=== PATIENT | male | born 1955 | race Caucasian/White ===

== ENCOUNTER → 2020-11-30 | Outpatient (CLI) | payer MEDICARE ==
[2020-11-30 15:21] LABS: HCT 44.9 % (39.0-53.0); MCH 29.8 pg (25.0-35.0); MCHC 33.4 g/dL (31.0-37.0); MCV 89.1 fL (80.0-100.0); Platelet Count 203 k/uL (150-450); RBC 5.04 m/uL (4.30-5.90); RDW 12.5 % (11.5-15.5); WBC 10.1 k/uL (3.8-10.6)
[2020-11-30 15:24] LABS: Appearance,Urine Clear (Clear); Bilirubin,Urine Negative (Negative); Blood,Urine Negative (Negative); Color,Urine Yellow; Glucose,Urine (UA) Negative (Negative); Ketones,Urine Negative (Negative); Leukocyte Esterase,Urine Negative (Negative); Nitrite,Urine Negative (Negative); Protein,Urine Trace (Negative); Specific Gravity,Urine 1.027 (1.001-1.035); Urobilinogen,Urine <2.0 mg/dL (<2.0)
[2020-11-30 15:31] LABS: Partial Thromboplastin Time 23.7 sec (22.0-30.0); Prothrombin Time 10.6 sec (9.0-12.0)
[2020-11-30 15:35] LABS: ALT 17 U/L (4-49); AST 28 U/L (17-59); African American GFR (CKD) >90 (>60 ml/min/1.73 sqM); Albumin 4.9 g/dL (3.5-5.0); Alkaline Phosphatase 65 U/L (38-126); Anion Gap 9 mmol/L; Blood Urea Nitrogen 18 mg/dL (9-20); Calcium 9.8 mg/dL (8.4-10.2); Carbon Dioxide 25 mmol/L (22-30); Chloride 106 mmol/L (98-107); Glucose 141 mg/dL (74-99); Non-African American GFR(CKD) 89 (>60 ml/min/1.73 sqM); Potassium 5.1 mmol/L (3.5-5.1); Sodium 140 mmol/L (137-145); Total Bilirubin 0.8 mg/dL (0.2-1.3); Total Protein 8.3 g/dL (6.3-8.2)
== END | disposition home or self-care (01) ==
LOC: LABPAT 14:34
PROVIDERS: ATTEND Orthopaedic Surgery
DX: Z01.818 Encounter for other preprocedural examination (principal)
CPT/HCPCS: 80053; 81003; 85027; 85610; 85730; 93005

== ENCOUNTER 2020-12-08 11:46 | Day surgery (SDC) | payer MEDICARE ==
[2020-12-06 10:02] VITALS: BMI 34.7
[~2020-12-08 11:46] MED LIST: ACETAMINOPHEN TAB 500 MG TAB PO PRN; DOCUSATE 100 MG CAP PO PRN; FAMOTIDINE 20 MG/2 ML VIAL IVP PRN; HYDROmorphone 0.5 MG/0.5 ML SYRINGE IVP PRN; KETOROLAC 15 MG/ML 1 ML VIAL IVP PRN; LIDOCAINE 1% (10MG/ML) FOR IV START INTRADERMA PRN; ONDANSETRON 4 MG/2 ML VIAL IVP PRN; TRANEXAMIC ACID 1,000 MG in SODIUM CHLORIDE 0.9% 100 ML IVPB PRN; VANCOMYCIN 1,000 MG in SODIUM CHLORIDE 0.9% 250 ML IVPB PRN; oxyCODONE ER 10 MG TAB.ER.12H PO PRN
[2020-12-08 12:24] VITALS: RESP 16
[2020-12-08] MEDS: LACTATED RINGERS 1,000 ML IV SCH ×2 (12:28→21:34)
[2020-12-08 12:29] LABS: Glucose,Whole Blood 144 mg/dL (75-99)
[2020-12-08] MEDS ORDERED: TRANEXAMIC ACID 1,000 MG in SODIUM CHLORIDE 0.9% 100 ML IVPB ONE (12:47)
[2020-12-08] MEDS: DEXAMETHASONE SOD PHOSPHATE 10 MG/ML 1 ML VIAL IV PRN ×2 (12:50→12:52)
[2020-12-08] MEDS ORDERED: fentaNYL (PF) 50 MCG/ML 2 ML AMP ONE (12:53)
[2020-12-08] MEDS ORDERED: GLYCOPYRROLATE 0.2 MG/ML 2 ML VIAL ONE (12:53)
[2020-12-08] MEDS ORDERED: SUCCINYLCHOLINE CHLORIDE 100 MG/5 ML SYR IV ONE (12:53)
[2020-12-08] MEDS ORDERED: PROPOFOL 10 MG/ML 20 ML VIAL IV ONE (12:53)
[2020-12-08] MEDS ORDERED: LIDOCAINE 1% INJ 10MG/ML (20 ML MDV) ONE (12:53)
[2020-12-08] MEDS ORDERED: SODIUM CHLORIDE 0.9% 100 ML BAG ONE (12:53)
[2020-12-08] MEDS ORDERED: NEOSTIGMINE 1 MG/ML 10 ML VIAL ONE (12:53)
[2020-12-08] MEDS ORDERED: TRANEXAMIC ACID 1,000 MG/10 ML VIAL ONE (12:53)
[2020-12-08] MEDS ORDERED: HYDROmorphone (PF) 1 MG/ML ONE (12:53)
[2020-12-08] MEDS ORDERED: ROCURONIUM 10 MG/ML (5 ML VIAL) IV ONE (12:53)
[2020-12-08] MEDS ORDERED: MIDAZOLAM 2 MG/2 ML VIAL ONE (12:53)
[2020-12-08] MEDS ORDERED: ROPIVACAINE/EPI/CLONIDINE/KET 50 ML SYRINGE MISCELLANE PRN (13:25)
[2020-12-08] MEDS ORDERED: LACTATED RINGERS 1,000 ML IV ONE (15:02)
[2020-12-08] MEDS ORDERED: VANCOMYCIN 1,000 MG VIAL MISCELLANE ONE (15:14)
--- NOTE | 2020-12-08 16:17 | XR ---
EXAMINATION TYPE: XR Hip Limited LT DATE OF EXAM: 12/08/2020 COMPARISON: NONE HISTORY: Postop TECHNIQUE: One view submitted. FINDINGS: There is postsurgical change in near anatomic alignment. There is soft tissue edema and emphysema. IMPRESSION: 1. Postoperative change. Appears in near-anatomic alignment.
--- NOTE | 2020-12-08 16:30 | P.OP ---
Date of Procedure: 12/08/20 Preoperative Diagnosis: Severe left hip osteoarthritis Postoperative Diagnosis: Same Procedure(s) Performed: Left direct anterior total hip arthroplasty Implants: 1. Yanci Trident II 56 mm cup 2. Yanci Accolade II size #6, 127-degree femoral stem 3. Biolox delta 40 mm, +0 femoral head Anesthesia: HENRRY Surgeon: Ramo Kasper Assistant Professor Of Nursing #1: Bishop Dean Estimated Blood Loss (ml): 300 IV fluids (ml): 1,400 Pathology: none sent Condition: stable Disposition: PACU Operative Findings: The patient is very pleasant previous healthy [age] male with a long-standing history of bilateral hip arthritis worse on the left. He failed over 1 year of nonsurgical treatment and presented to see me in the office to discuss surgical options. Since he failed over 1 year of nonsurgical treatment and had severe arthritis I recommended a direct anterior hip replacement. We discussed the potential risks and complications of surgery including but certainly not limited to risk of infection, delayed wound healing, intraoperative fracture, postoperative fracture, dislocation, periprosthetic fracture, leg length discrepancy, damage to local blood vessels or nerves, loosening, hardware failure, need for further surgery, numbness over the lateral skin from lateral femoral cutaneous nerve injury, satisfaction with surgery, DVT, PE, and possibly loss of life or limb. The patient voices extremities potential complications and also a neurologist other less common Rotations are possible. Description of Procedure: The patient was then prepped of holding and the correct left leg was marked with my initials. I reviewed the consent form with the patient and all of his questions were answered. The patient was then brought back to the operating room. General anesthetic was given on the gurney followed by antibiotics and try and examine casted. Roots for the Marielena table were placed. Prior to placing boots leg lengths were felt. Preoperatively the patient stated that he did not notice a leg length discrepancy. The patient was then carefully transferred onto the Marielena table. The boots were secured to the table. A perineal post was placed. The arms were positioned in the safe position. Nonsterile draping was applied. Preoperative imaging was taken including a tissue AP of the pelvis matched the standing AP taken in the office. A bi- ischial was used to measure offset and length to determine intraoperatively ideal implant position. The left leg was then prepped and draped in standard sterile fashion. Prior to starting surgery timeout was performed identifying the correct patient, operative extremity, and procedure. All in attendance were in agreement. Next I began by marking out a standard longitudinal incision for a direct anterior approach of the hip. Skin incision with a scalpel. Dissection was carried down carefully dissecting assist with electrocautery. The fascia over the tensor was split longitudinally in line with the skin incision. I bluntly developed the interval between the tensor and sartorius. A blunt Cobra was placed superior to the neck. Dissection was carried down to the floor of the tensor fascia and the circumflex vessels were found and controlled with bipolar sealant. The capsular fat was then incised and a second Cobra retractor was placed inferior to the neck. The interval between the muscle and capsule was bluntly elevated and a sharp Scott was placed over the anterior rim of the acetabulum. A capsulotomy was performed. The inferior leaflet of the capsule was excised. Both Cobra retractors were placed inside the capsule. The neck cut was marked out and verified with fluoroscopy. A sagittal saw was used to make the neck cut in accordance attempt plating. The head was removed and handed off to the back table to size. The superior capsular leaflet was removed. Circumferential exposure of the acetabulum was achieved. I then reamed down to the floor of the cotyloid fossa. Then sequentially reamed until I had a good fit and nice bed of bleeding cancellus bone. The wound was thoroughly irrigated. A size 56 mm cup was gently tapped into place getting excellent purchase. Fluoroscopy was then brought in to fine-tune position of the cup and fully seated down to the medial wall. The cup felt extremely stable. A single screw was placed for additional stability. A liner was then carefully placed to accommodate a 40 head. Attention was then turned to the femur. Due to significant scarring I had to make multiple releases to elevate the femur including releasing the tensor 1 cm distal to its origin. With careful sequential release I was able to safely elevate the femur. I then gained entrance to the canal with a box osteotome followed by a blunt tipped canal sound. I sequentially broached up to a size 5 broach which felt stable and was countersunk. A calcar planar was used to bring the neck cut flush with the broach. I then cycled around a size 6 stem which felt stable. I then carefully trialed to determine correct head and neck options. Final implants listed above were implanted. Final fluoroscopic images were taken. The implant appeared within several position and length and offset were restored in accordance with preoperative planning. The wound was thoroughly irrigated with 3 L of sterile saline after a dilute Betadine soaked. Local anesthetic was injected throughout. The tensor was repaired. 2 g of vancomycin powder was placed at the level of the implant. The tensor was closed with #2 Ethibond. The fascia over the tensor was closed with a running 0 strata thick stitch which was then run back in the deep subcu. The superficial subcu was closed with a running 20 strata fixed and the skin was closed with 3-0 Monocryl and Dermabond. A sterile dressing was applied. The patient was then carefully taken off the Marielena table, transferred to a gurjordan where leg lengths felt close to equal, and the patient was transferred to recovery having tolerated the procedure well. Bishop Dean PA-C was required as a skilled certified ophthalmic assistant for patient positioning, retraction, completion of procedure, closure of wound, apposition of dressing. Plan: The patient is going to be admitted overnight. He will receive 2 doses of postoperative antibiotics and a postoperative dose of tranexamic acid. His Hemovac drain will be removed tomorrow. Due to the extensive release and exposure and hypertrophic arthritis I will treat him with Indocin heterotopic ossification prophylaxis. We'll also treat him with 2 weeks of doxycycline due to the extensive release required to expose the femur to lower his risk of infection in accordance with literature supporting extended oral antibiotics and higher risk patients. We'll treat him with aspirin for DVT prophylaxis.
[2020-12-08] MEDS ORDERED: HYDROmorphone 0.2 MG/1 ML SYRINGE IVP PRN (16:52)
[2020-12-08] MEDS ORDERED: HYDROmorphone 0.5 MG/0.5 ML SYRINGE IVP PRN ×2 (16:52)
[2020-12-08] MEDS ORDERED: HYDROcodone/APAP 5-325MG 1 EACH TAB PO PRN ×2 (16:52)
[2020-12-08] MEDS ORDERED: hydrOXYzine pamoate 25 MG CAP PO PRN (16:52)
[2020-12-08] MEDS ORDERED: NALOXONE 0.4 MG/ML 1 ML VIAL IV PRN (16:52)
[2020-12-08 17:03] LABS: Glucose,Whole Blood 188 mg/dL (75-99)
[2020-12-08 20:16] LABS: Glucose,Whole Blood 192 mg/dL (75-99)
[2020-12-08] MEDS ORDERED: SENNOSIDES-DOCUSATE SODIUM 1 EACH TAB PO SCH (21:00)
[2020-12-08] MEDS ORDERED: DOXYCYCLINE 100 MG CAP PO SCH (21:00)
[2020-12-08] MEDS: ASPIRIN 81 MG PO SCH (21:47)
[2020-12-08] MEDS: INSULIN ASPART (NovoLOG) 100 UNIT/ML VIAL SQ SCH (21:52)
[2020-12-09] MEDS: ASPIRIN 81 MG PO SCH (07:13)
[2020-12-09 07:14] LABS: Glucose,Whole Blood 181 mg/dL (75-99)
[2020-12-09] MEDS: INSULIN ASPART (NovoLOG) 100 UNIT/ML VIAL SQ SCH ×2 (07:14→11:32)
[2020-12-09] MEDS ORDERED: INSULIN ASPART (NovoLOG) 100 UNIT/ML VIAL SQ SCH ×2 (07:30→21:31)
[2020-12-09 08:00] VITALS: BP 119/56; PULSE 96; TEMP 98.3
[2020-12-09] MEDS ORDERED: INDOMETHACIN 25 MG CAP PO SCH (09:00)
--- NOTE | 2020-12-09 09:10 | FL ---
Fluoroscopy History: TOTAL HIP ARTHROPLASTY OA LEFT HIP L HIP REPLACEMENT, 1MIN 7SEC FL TIME
[2020-12-09 09:55] LABS: Basophils # (A) 0.04 X 10*3/uL (0.00-0.10); Basophils % (A) 0.3 %; Eosinophils # (A) 0.01 X 10*3/uL (0.04-0.35); Eosinophils % (A) 0.1 %; HCT 33.5 % (39.6-50.0); Lymphocytes # (A) 1.74 X 10*3/uL (0.90-5.00); Lymphocytes % (A) 11.8 %; MCH 28.7 pg (27.0-32.0); MCHC 32.8 g/dL (32.0-37.0); MCV 87.5 fL (80.0-97.0); Mean Platelet Volume 10.8 fL (9.5-12.2); Monocytes % (A) 10.2 %; Neutrophils % (A) 77.1 %; Platelet Count 177 X 10*3/uL (140-440); RBC 3.83 X 10*6/uL (4.40-5.60); RDW 12.7 % (11.5-14.5); WBC 14.77 X 10*3/uL (4.50-10.00)
[2020-12-09] MEDS ORDERED: PIOGLITAZONE 15 MG TAB PO SCH (10:45)
[2020-12-09 11:26] LABS: Glucose,Whole Blood 178 mg/dL (75-99)
--- NOTE | 2020-12-09 12:43 | P.DS ---
Providers Expected date of discharge: 12/09/20 Attending physician: Ramo Kasper Consults: 12/08/20 19:04 Consult Physician Routine Consulting Provider: Josias King Consult Reason/Comments: medical management Do you want consulting provider notified?: Yes Primary care physician: Brice Luciakas [place] [facility] Course: This is a 64-year-old male who has been followed in our office by Dr. Kasper for continued complaints of left hip pain due to severe left hip osteoarthritis. Treatment options were discussed, and patient elected to undergo a left total hip arthroplasty. Patient was seen pre-operatively by Dr. Oneill and cleared for surgery. Patient underwent a left total hip arthroplasty on 12/08/20. The procedure was performed without complication or sequelae. The patient is doing fairly well postoperatively. Vital signs and labs are stable on postoperative day #1. Patient was examined bedside today. Patient states he is overall doing very well and the pain in his left hip is well-controlled. His hemovac drain was pulled earlier this morning. He has been ambulating with a walker with minimal assistance. He has worked with physical therapy this morning. Patient is tolerating his breakfast well. He is voiding with issues. He has not had a bowel movement yet, he denies abdominal pain. Patient is comfortable being discharged home today. Patient denies chest pain, shortness of breath, nausea, vomiting, fevers, chills. On examination, the patient is sitting up in the bed in no apparent distress. He is alert and orientated 3. On inspection of the left hip, there is a clean, dry, intact surgical dressing in place. There is no bleeding or drainage the dressing. Patient has good strength and ROM of the left ankle and toes. Motor and sensory function is intact of the left lower extremity. The dorsalis pedis pulse is easily palpable, the left lower extremity is warm and well perfused with brisk capillary refill. Calf is soft and non-tender to palpation. Patient is discharged home with home health in good condition, pending medical clearance. Patient will follow-up with Dr. Kasper in the office in 2 weeks. Please see med rec for accurate list of discharge medication. Plan - Discharge Summary Discharge Rx Participant: No New Discharge Prescriptions: New Docusate [Colace] 100 mg PO BID 30 Days #60 cap Diclofenac Sodium [Voltaren] 75 mg PO BID 30 Days #60 tab Aspirin 81 mg PO BID 30 Days #60 tab Doxycycline Monohydrate 100 mg PO BID 14 Days #28 cap Indomethacin [Indocin ER] 75 mg PO DAILY 42 Days #42 cap HYDROcodone/APAP 5-325MG [[place] 5-325] 1 - 2 tab PO Q6HR PRN 7 Days #40 tab PRN Reason: Pain Omeprazole 40 mg PO DAILY 30 Days #30 cap Tamsulosin [Flomax] 0.4 mg PO HS #30 cap Continue Super Beta Prostate 2 tab PO DAILY Pioglitazone [Actos] 15 mg PO DAILY amLODIPine [Norvasc] 5 mg PO DAILY Discontinued Ibuprofen 200 mg PO Q8H PRN PRN Reason: Pain Discharge Medication List Pioglitazone [Actos] 15 mg PO DAILY 12/06/20 [History] Super Beta Prostate 2 tab PO DAILY 12/06/20 [History] amLODIPine [Norvasc] 5 mg PO DAILY 12/06/20 [History] Aspirin 81 mg PO BID 30 Days #60 tab 12/09/20 [Rx] Diclofenac Sodium [Voltaren] 75 mg PO BID 30 Days #60 tab 12/09/20 [Rx] Docusate [Colace] 100 mg PO BID 30 Days #60 cap 12/09/20 [Rx] Doxycycline Monohydrate 100 mg PO BID 14 Days #28 cap 12/09/20 [Rx] HYDROcodone/APAP 5-325MG [[place] 5-325] 1 - 2 tab PO Q6HR PRN 7 Days #40 tab 12/09/20 [Rx] Indomethacin [Indocin ER] 75 mg PO DAILY 42 Days #42 cap 12/09/20 [Rx] Omeprazole 40 mg PO DAILY 30 Days #30 cap 12/09/20 [Rx] Tamsulosin [Flomax] 0.4 mg PO HS #30 cap 12/09/20 [Rx] Follow up Appointment(s)/Referral(s): Brice Oneill MD [Primary Care Provider] - 1 Week [facility], [NON-STAFF] - ([facility] will call you to schedule your home physical therapy appointments. ) Ramo Kasper MD [Medical Doctor] - 2 Weeks Patient Instructions/Handouts: Joint Replacement Surgery (DC) Activity/Diet/Wound Care/Special Instructions: Weight bear as tolerated on operative leg with a walker. Keep Optifoam dressing in place 7-10 days. Take medications as prescribed. Follow-up in the office in two weeks with Dr. Kasper. Call the office with any questions or concerns, Discharge Disposition: HOME WITH HOME HEALTH SERVICES
--- NOTE | 2020-12-09 20:06 | P.CONS ---
History of Present Illness - Reason for Consult Consult date: 12/09/20 Medical management Requesting physician: Ramo Kasper - Chief Complaint Hip surgery - History of Present Illness This is a very pleasant 64-year-old patient of Dr. Brice Oneill. Chronic stable medical conditions include diabetes mellitus, hypertension, osteoarthri tis, BPH for which she takes a supplement. Patient does still gets up at night to go to the bathroom. Some hesitancy. Patient is undergoing left total hip arthroplasty. Pain is controlled. Did walk today. Did tolerate some breakfast. No nausea vomiting. No chest pain or shortness of breath. is present. Feeling rather well. Amlodipine was held this morning because blood pressure was running on the lower side. No dizziness, lightheadedness. Review of systems: GEN.: None EYES: None HEENT: None NECK: None RESPIRATORY: None CARDIOVASCULAR: None GASTROINTESTINAL: None GENITOURINARY: None MUSCULOSKELETAL: Joint pains LYMPHATICS: None HEMATOLOGICAL: None PSYCHIATRY: None NEUROLOGICAL: None Past medical history to include: Diabetes mellitus, hypertension, osteoarthritis, BPH Social history: Retired tool and dyer assistant. . Alcohol rarely. No smoking. Family history: Cancer Physical examination: VITAL SIGNS: Weight 3, 96, 16, 119/56, 92% room air GENERAL: BMI 33.9, awake, comfortable. EYES: Pupils equal. Conjunctiva normal. HEENT: External appearance of nose and ears normal, oral cavity grossly normal. NECK: JVD not raised; masses not palpable. HEART: First and second heart sounds are normal; no edema. LUNGS: Respiratory rate normal; clear to auscultation. MUSCULAR skeletal: Evidence of OA ABDOMEN: Soft, nontender, liver spleen not palpable, no masses palpable. PSYCH: Alert and oriented x3; mood and affect normal. NEUROLOGICAL: Cranial nerves grossly intact; no facial asymmetry, power and sensation grossly intact. LYMPHATICS: No lymph nodes palpable in the axilla and neck INVESTIGATIONS, reviewed in the clinical context: WBC 14.7 hemoglobin 11 platelets 177 Hemoglobin 15 on November 30 BUN 18 creatinine 0.9 sodium 140 potassium 5.1 on November 30 Assessment and plan: -Left total hip arthroplasty. Pain medications by orthopedics. Aspirin 81 mg twice a day for DVT prophylaxis -Essential hypertension Post outpatient blood pressures running lower side. Patient to hold using his Norvasc and his blood pressure rises to above 1:30 systolic. Patient checked his blood pressure daily. -BPH Patient does take a prostate supplement. A discussion with the patient by starting the patient on Flomax 0.4 mg daily. -Diabetes mellitus type 2 Resume Actos. Follow Accu-Cheks -GERD Prilosec 40 mg daily -Primary osteoarthritis multiple joints bilaterally Pain medications as needed Care was discussed in detail with the patient. Questions answered. Follow-up with PCP. Thank you Dr. Kasper Past Medical History Past Medical History: Diabetes Mellitus, Hypertension, Osteoarthritis (OA), Pn eumonia History of Any Multi-Drug Resistant Organisms: None Reported Past Surgical History: Adenoidectomy, Orthopedic Surgery, Tonsillectomy Additional Past Surgical History / Comment(s): colon polyp removed surgically, spur removed from rt ankle, arthroscopy rt knee Past Anesthesia/Blood Transfusion Reactions: No Reported Reaction Past Psychological History: No Psychological Hx Reported Smoking Status: Former smoker Past Alcohol Use History: Rare Additional Past Alcohol Use History / Comment(s): quit smoking 30 yrs ago, started smoking as a teen Past Drug Use History: None Reported - Past Family History Mother Family Medical History: Cancer Medications and Allergies Home Medications Medication Instructions Recorded Confirmed Type Pioglitazone [Actos] 15 mg PO DAILY 12/06/20 12/08/20 History Super Beta Prostate 2 tab PO DAILY 12/06/20 12/08/20 History amLODIPine [Norvasc] 5 mg PO DAILY 12/06/20 12/08/20 History Aspirin 81 mg PO BID 30 Days #60 tab 12/09/20 Rx Diclofenac Sodium [Voltaren] 75 mg PO BID 30 Days #60 tab 12/09/20 Rx Docusate [Colace] 100 mg PO BID 30 Days #60 cap 12/09/20 Rx Doxycycline Monohydrate 100 mg PO BID 14 Days #28 cap 12/09/20 Rx HYDROcodone/APAP 5-325MG [[place] 1 - 2 tab PO Q6HR PRN 7 Days #40 12/09/20 Rx 5-325] tab Indomethacin [Indocin ER] 75 mg PO DAILY 42 Days #42 cap 12/09/20 Rx Omeprazole 40 mg PO DAILY 30 Days #30 cap 12/09/20 Rx Tamsulosin [Flomax] 0.4 mg PO HS #30 cap 12/09/20 Rx Allergies Allergy/AdvReac Type Severity Reaction Status Date / Time No Known Allergies Allergy Verified 12/08/20 12:11 Physical Exam Vitals: Vital Signs Temp Pulse Pulse Resp BP Pulse Ox 12/09/20 07:59 98.3 F 96 16 119/56 92 L 12/09/20 07:30 16 12/09/20 02:00 98.9 F 81 16 115/58 95 12/08/20 20:10 84 136/74 94 L 12/08/20 19:55 85 144/78 95 12/08/20 19:40 93 129/75 96 12/08/20 19:25 84 147/72 95 12/08/20 19:15 97.6 F 88 16 129/75 96 12/08/20 18:55 79 116/65 94 L 12/08/20 18:40 71 113/64 90 L 12/08/20 18:25 66 103/62 95 12/08/20 18:15 75 111/67 93 L 12/08/20 18:02 97.6 F 68 16 115/50 92 L 12/08/20 17:31 73 16 119/66 97 12/08/20 17:16 73 16 110/63 99 12/08/20 17:02 70 16 119/62 99 12/08/20 16:45 70 16 115/63 99 12/08/20 16:43 97.7 F 70 16 118/65 99 12/08/20 12:13 98.3 F 91 16 156/86 93 L Intake and Output 12/08/20 12/09/20 12/09/20 22:59 06:59 14:59 Intake Total 600 Output Total 300 300 Balance 300 -300 Intake: IV 600 Output: Drainage 175 Left Hip 175 Urine 125 Estimated Blood Loss 300 Other: # Voids 1 1 Weight 104.1 kg Results CBC & Chem 7: 12/09/20 06:31 Labs: Abnormal Lab Results - Last 24 Hours (Table) 12/08/20 12/08/20 12/08/20 Range/Units 12:27 17:01 20:15 WBC (4.50-10.00) X 10*3/uL RBC (4.40-5.60) X 10*6/uL Hgb (13.0-17.0) g/dL Hct (39.6-50.0) % Immature Gran # (0.00-0.04) X 10*3/uL Neutrophils # (1.80-7.70) X 10*3/uL Monocytes # (0.20-1.00) X 10*3/uL Eosinophils # (0.04-0.35) X 10*3/uL POC Glucose (mg/dL) 144 H 188 H 192 H (75-99) mg/dL 12/09/20 12/09/20 Range/Units 06:31 07:09 WBC 14.77 H (4.50-10.00) X 10*3/uL RBC 3.83 L (4.40-5.60) X 10*6/uL Hgb 11.0 L (13.0-17.0) g/dL Hct 33.5 L (39.6-50.0) % Immature Gran # 0.08 H (0.00-0.04) X 10*3/uL Neutrophils # 11.40 H (1.80-7.70) X 10*3/uL Monocytes # 1.50 H (0.20-1.00) X 10*3/uL Eosinophils # 0.01 L (0.04-0.35) X 10*3/uL POC Glucose (mg/dL) 181 H (75-99) mg/dL
== END 2020-12-09 12:49 | disposition home health service (06) ==
LOC: OR 11:46 → 4SSUR 16:15 → OR 12-09 12:49
PROVIDERS: ATTEND Orthopaedic Surgery
DX: M16.12 Unilateral primary osteoarthritis, left hip (principal); I10 Essential (primary) hypertension; N40.0 Benign prostatic hyperplasia without lower urinary tract symptoms; E11.9 Type 2 diabetes mellitus without complications; Z20.822 Contact with and (suspected) exposure to COVID-19; Z87.891 Personal history of nicotine dependence; Z79.84 Long term (current) use of oral hypoglycemic drugs; Z79.1 Long term (current) use of non-steroidal anti-inflammatories (NSAID); Z79.899 Other long term (current) drug therapy; Z98.890 Other specified postprocedural states; Z87.01 Personal history of pneumonia (recurrent); Z90.49 Acquired absence of other specified parts of digestive tract; Z80.9 Family history of malignant neoplasm, unspecified
CPT/HCPCS: 97161; 85025; 88300; 87635; 73501; 27130; C1776; J2250; J3370; J1100; J2710; J0690 ×2; J2405; J2001; J3010; J1170; J1885; J0330; J2704; 86850; 86900; 86901